=== PATIENT | female | born 1995 | race Caucasian/White ===

== ENCOUNTER 2021-03-15 09:00 | Emergency (ER) | payer OTHER, SELFPAY ==
[2021-03-15 09:10] VITALS: BP 131/66; PULSE 103; RESP 18; TEMP 37.6; O2SAT 98
--- NOTE | 2021-03-15 09:10 | ED.URI ---
HPI - URI/Sore Throat General Chief Complaint: Upper Respiratory Infection Stated Complaint: Sore Throat, Body pain, congestion, runny Nose Time Seen by Provider: 03/15/21 09:10 Source: patient and RN notes reviewed Mode of arrival: ambulatory Limitations: no limitations History of Present Illness HPI Narrative: 25-year-old female presents to the [facility] with complaints of a sore throat, body pain, congestion and runny nose. Patient reports 2 days ago on Tuesday she started with a sore throat, worse yesterday. Woke up this morning and states the throat felt better, now has body aches. Has only taken Tylenol for symptoms Last menstrual period 6 days ago. Denies fevers, cough, chest pain, abdominal pain Related Data Home Medications Medication Instructions Recorded Confirmed buspirone 15 mg PO BID 03/15/21 03/15/21 drospirenone-ethinyl estradiol 1 tablet PO BID 03/15/21 03/15/21 lamotrigine 25 mg PO BID 03/15/21 03/15/21 methylphenidate HCl 20 mg PO TID 03/15/21 03/15/21 sertraline 100 mg PO BID 03/15/21 03/15/21 Allergies Allergy/AdvReac Type Severity Reaction Status Date / Time sulfamethoxazole Allergy Unknown Unknown Verified 03/15/21 09:21 [From Bactrim] trimethoprim [From Bactrim] Allergy Unknown Unknown Verified 03/15/21 09:21 Review of Systems Review of Systems: All systems reviewed & are unremarkable except as noted in HPI and below Constitutional: Constitutional: Reports no additional constitutional complaints, Denies chills and Denies fever(s) Eyes: Eyes: Reports no additional eye complaints ENT: Reports as per HPI and Reports sore throat Cardiovascular: Cardiovascular: Reports no additional cardiovascular complaints Respiratory: Respiratory: Reports no additional respiratory complaints, Denies cough and Denies dyspnea Musculoskeletal: Musculoskeletal: Reports as per HPI and Reports myalgias Integumentary/Breasts: Skin/Breast: Reports system reviewed and no additional complaints, except as docu Neurologic: Reports system reviewed and no additional complaints, except as documented, Denies confusion, Denies vertigo, Denies headache(s), Denies numbness and Denies weakness Psychiatric: Psychiatric: Reports no additional psychiatric complaints Allergic/Immunologic: Allergic/Immunologic: Reports no additional allergic/immunologic complaints PMFSH Past Medical History Medical History (Updated 03/15/21 @ 09:35 by Kristy Woods) Depression with anxiety Surgical History Surgical History (Updated 03/15/21 @ 09:16 by Kristy Woods) No significant past surgical history Comments At the time of my signature, I reviewed and agree with the nursing past medical, surgical, social, and family history. There is no relevant family history pertinent to the patient complaint. Exam Const: General: no acute distress, alert and ill appearing acutely (Mildly) Nutritional Appearance: well nourished Orientation/consciousness: patient oriented x3 HENMT: Head: normal to inspection Ears: external ears normal, TM's normal bilaterally and EAC's normal General nose exam: Nasal discharge present clear Mouth: Yes moist mucous membranes Throat: uvula midline Eyes: Conjunctivae: conjunctivae normal Pupils: Equal, round and reactive pupils present Neck: Neck: normal visual inspection, no lymphadenopathy and no meningeal signs Chest: Chest palpation & inspection: normal inspection of the chest Resp: Effort & Inspection: normal respiratory effort and no use of accessory muscles Auscultation: clear to auscultation bilaterally, no crackles, no rales, no rhonchi and no wheezes Cardio: Rate: regular rate Rhythm: regular rhythm : General: Yes no CVA tenderness Back/Spine/Pelvis: Back: no CVA tenderness Skin: General skin exam: normal color Rashes: no rashes Wounds: no wounds Neuro: General: patient oriented x3, moves all extremities, no meningeal signs and no focal motor deficits Speech: normal speech [place]
[2021-03-17 01:23] LABS: SARS-CoV-2 RNA PCR Positive
== END 2021-03-15 09:40 | disposition home or self-care (01) ==
PROVIDERS: Emergency Provider Nurse Practitioner
DX: U07.1 COVID-19 (principal); F41.8 Other specified anxiety disorders
CPT/HCPCS: 87081; 87804; 87880; 99213; C9803; G0463; U0003; U0005